=== PATIENT | male | born 1980 | race Two or more races ===

== ENCOUNTER 2022-06-10 08:19 | Emergency (ER) | payer OTHER ==
[~2022-06-10] VITALS: Ht 167.6 cm; Wt 105.2 kg
[2022-06-10 08:57] VITALS: BP 140/89
[2022-06-10] MEDS ORDERED: IBUPROFEN 800 MG TAB PO ONE (09:30)
[2022-06-10] MEDS ORDERED: IBUP800T27 PO (09:31)
[2022-06-10] MEDS ORDERED: NEOMYCIN-BACITRACIN-POLYM UNITDOSE PKG TOP OINT TOP ONE (09:45)
== END 2022-06-10 09:45 | disposition home or self-care (01) ==
LOC: ER 08:27
DX: S01.01XA Laceration without foreign body of scalp, initial encounter (principal); Z79.1 Long term (current) use of non-steroidal anti-inflammatories (NSAID); W20.8XXA Other cause of strike by thrown, projected or falling object, initial encounter; Y93.89 Activity, other specified; Y92.89 Other specified places as the place of occurrence of the external cause; Y99.0 Civilian activity done for income or pay
CPT/HCPCS: 12002